=== PATIENT | male | born 1995 | race Caucasian/White ===

== ENCOUNTER 2016-08-27 01:49 | Emergency (ER) | payer BC ==
[~2016-08-27 01:49] MED LIST: CEFDINIR300 M1 PO; CLEOCIN HCL300 M1 PO; CLINDAMYCIN HC300 M2 PO; NO HOME MEDICATION XX; NORCO 5-325 TA1 EACH PO; TYLENOL325 M2 PO; ZOFRAN ODT4 MG PO
[2016-08-27] MEDS ORDERED: BENADRYL ALLERG25 M1 PO (02:00)
[2016-08-27 02:29] LABS: URINE BILIRUBIN NEGATIVE (NEG); URINE BLOOD NEGATIVE (NEG); URINE GLUCOSE (UA) NEGATIVE (NEG); URINE KETONE NEGATIVE (NEG); URINE LEUKOCYTE ESTERASE NEGATIVE (NEG); URINE NITRITE NEGATIVE (NEG); URINE PH 6.5 (5.0-8.0); URINE PROTEIN NEGATIVE (NEG); URINE SPECIFIC GRAVITY 1.015 (1.003-1.030)
[2016-08-27 02:30] LABS: URINE APPEARANCE CLEAR; URINE COLOR PALE YELLOW
[2016-08-27 02:32] LABS: BASO % 0.5 % (0-2); BASO ABSOLUTE COUNT 0.1 tho/cmm (0.0-0.2); EOS % 2.5 % (0-7); EOSINOPHIL ABSOLUTE COUNT 0.2 tho/cmm (0.0-0.7); HCT-HEMATOCRIT 43.1 % (36.0-53.5); HGB-HEMOGLOBIN 14.5 gm/dl (13.5-17.0); IMMATURE GRANULOCYTES ABSOLUTE 0.02 tho/cmm (0-0.03); IMMATURE GRANULOCYTES PERCENT 0.2 % (0-0.3); LYMPH % 42.4 % (20-45); LYMPH ABSOLUTE COUNT 4.1 tho/cmm (0.8-4.5); MCH (MEAN CORPUSCULAR HGB) 27.5 pg (28.0-32.0); MCHC MEAN CORPUSCULAR HGB CONC 33.6 % (32.0-36.0); MCV (MEAN CELL VOLUME) 81.8 fl (82.0-96.0); MEAN PLATELET VOLUME 11.2 cmc (9.4-12.4); MONO % 10.9 % (0-12); MONOCYTE ABSOLUTE COUNT 1.1 tho/cmm (0.0-1.2); NEUTROPHIL ABSOLUTE COUNT 4.2 tho/cmm (1.6-8.0); NEUTROPHIL-AUTOMATED 4.2 tho/cmm (1.6-8.0); NEUTROPHILS % 43.5 % (40-80); PLATELET COUNT 221 tho/cmm (150-450); RED BLOOD COUNT 5.27 mil/cmm (4.40-5.70); RED CELL DISTRIBUTION WIDTH 12.5 % (12.4-16.4); WHITE BLOOD COUNT 9.7 tho/cmm (4.0-10.0)
[2016-08-27 02:45] LABS: ALB/GLOB RATIO 1.1 (0.8-2.0); ALBUMIN 4.3 g/dl (3.5-5.0); ALKALINE PHOSPHATASE 87 U/L (33-138); ALT/SGPT 25 U/L (12-78); BILIRUBIN,TOTAL 0.5 mg/dl (0.0-1.5); BLOOD UREA NITROGEN 13 mg/dl (6-24); CARBON DIOXIDE-VENOUS 28 mmol/L (22-32); CHLORIDE 105 mmol/l (96-110); CREATININE 0.84 mg/dl (0.60-1.30); GLUCOSE 101 mg/dL (70-110); LIPASE 188 U/L (73-393); eGFR VALUE FOR BLACK >90 mL/Min
[2016-08-27 02:50] LABS: ANION GAP 12 mmol/L (0-20); AST/SGOT 23 U/L (10-40); POTASSIUM 3.7 mmol/L (3.7-5.1); SODIUM 141 mmol/L (135-145)
[2016-08-27] MEDS ORDERED: MIRALAX17 G2 PO (04:38)
== END 2016-08-27 04:53 ==
LOC: EDMED 01:49
PROVIDERS: Emergency Medicine
DX: K59.00 Constipation, unspecified (principal); F41.9 Anxiety disorder, unspecified; Z88.0 Allergy status to penicillin
CPT/HCPCS: J2405; J7030; Q9967